=== PATIENT | female | born 1990 | race African-American/Black ===

== ENCOUNTER 2017-01-05 13:42 | Emergency (ER) | payer OTHER ==
--- NOTE | ~2017-01-05 | US61 ---
[facility] A Service of [facility] RADIOLOGY TEXT RESULTS PATIENT: WILSON MUELLER LOCATION: CFTX : 88 UNIT #: [id number] AGE: [address]: Kellen Liz SEX: F ORDER DR: [id number] [facility]. [place], [place] [address] [id number] MR#: [id number] Acc #: [id number] NAME: WILSON MUELLER : 1990 SEX: F STUDY DATE/TIME: 01/05/2017 14:47 UNIT: CFTX ROOM: STUDY DESCRIPTION: US /Mat <14Wk / Attending Physician: Kellen Liz P.A.-C. Ordering Physician: Kellen Liz P.A.-C. MEDICAL IMAGING REPORT This report is preliminary unless electronic signature is present EXAM maternal ultrasound less than 14 weeks. COMPARISON None. INDICATIONS 26-year-old female with vaginal bleeding and passage of vaginal clots for 1 week. Last menstrual period was October 28, 2016 with beta quantitative HCG of 666 hakeem international units per mL. FINDINGS Endometrial stripe thickness measures 13 mm. There is peripheral echogenicity along endometrial stripe with central hypoechogenicity and findings could reflect blood products within the endometrial canal. Within the endometrial canal at the lower uterine segment, there is abnormally-shaped hypoechoic structure which could represent an abnormal gestational sac. No pole is seen. Alternately, it could represent heterogeneous blood products. Uterus measures 5.5 cm x 5.6 cm x approximately 8.9 cm. Right ovary measures 3.8 cm x 1.5 cm x 3.9 cm and contains normal internal follicles. There is color and Doppler flow within the right ovary. Left ovary measures 3.6 cm x 2.1 x 3.8 cm and contains normal internal follicles. There is internal color-flow and Doppler flow within the left ovary. No free fluid is seen within the pelvis. No adnexal masses are seen. IMPRESSION 1. No normal intrauterine is seen. There is material within the endometrial canal which may reflect simply thickened endometrium but there is a hypoechoic structure within the endometrium/endometrial canal at the lower uterine segment which could reflect blood products or possibly an abnormal gestational sac. No pole is seen. There is no evidence of ectopic . [facility] A Service of [facility] RADIOLOGY TEXT RESULTS PATIENT: WLISON MUELLER LOCATION: [place] : 89 UNIT #: [id number] AGE: [address]: Kellen Liz SEX: F ORDER DR: Clinical correlation is recommended and serial beta-HCG is also recommended. 2. No evidence of adnexal mass. The ovaries are normal without evidence of torsion. Dictated by... Sherif Salgado M.D. THIS IS AN ELECTRONICALLY VERIFIED REPORT Sherif Salgado M.D. at 01/10/2017 12:59 PM BLM/pcl TD: 01/05/2017 20:07 JOB #: [id number] MEDICAL IMAGING REPORT Page 1 of 1 COPY
[2017-01-05 14:21] LABS: URINE SOURCE CLEAN CATCH
[2017-01-05 14:38] LABS: BASOPHIL% 0.7 % (0-2.5); DIFF IND NO; EOSINOPHIL# 0.1 X10e3 (0-0.7); EOSINOPHIL% 1.8 % (0.0-7.0); HEMATOCRIT 35.8 % (35.0-45.0); HEMOGLOBIN 11.6 gm/dL (12.0-16.0); LYMPHOCYTE# 1.8 X10e3 (1.0-3.5); LYMPHOCYTE% 37.5 % (17.0-45.0); MEAN CELL VOLUME 95.4 FL (83-96); MEAN CORPUSCULAR HEMOGLOBIN 30.9 PG (28-34); MEAN CORPUSCULAR HGB CONC 32.4 g/dL (30-36); MEAN PLATELET VOLUME 8.6 FL (6.5-11.5); MONOCYTE# 0.4 X10e3 (0-1.0); MONOCYTE% 7.4 % (3.0-12.0); NEUTROPHIL# 2.6 X10e3 (1.5-7.1); NEUTROPHIL% 52.6 % (40-75); PLATELET COUNT 222 X10e3 (140-420); RED BLOOD COUNT 3.75 X10e (3.90-5.30); RED CELL DISTRIBUTION WIDTH 14.7 % (11.0-15.5); WHITE BLOOD COUNT 4.8 X10e3 (4.0-10.5)
[2017-01-05 14:48] LABS: URINE APPEARANCE CLEAR; URINE BLOOD 3+ (NEG); URINE COLOR RED; URINE GLUCOSE NEG (NEG); URINE KETONE NEG (NEG); URINE LEUKOCYTE ESTERASE 1+ (NEG); URINE NITRATE NEG (NEG); URINE PH 6.5 (5-8); URINE PROTEIN 2+ (NEG); URINE SPECIFIC GRAVITY 1.016 (1.003-1.035)
[2017-01-05 14:51] LABS: CULTURE INDICATED? YES; URBCS1 AUWI 25-50 /[HPF] (0-2); URINE BACTERIA AUWI 1+ (NEGATIVE); URINE SQUAMOUS EPITHELIAL CELL MOD /[HPF]
[2017-01-05 15:02] LABS: URINE BILIRUBIN NEG (NEG)
== END 2017-01-05 16:55 | disposition home or self-care (01) ==
LOC: CED 13:42 → CFTX 13:42
PROVIDERS: Physician Assistant
DX: O20.0 Threatened abortion (principal); F17.290 Nicotine dependence, other tobacco product, uncomplicated
CPT/HCPCS: 36415; 76801; 81003; 84702; 84703; 85025; 86900; 86901; 87086; 99284